=== PATIENT | male | born 1960 | race Caucasian/White ===

== ENCOUNTER → 2017-01-18 | Outpatient (CLI) | payer OTHER | END | disposition home or self-care (01) | LOC: PTH.S 08:29 | DX: Z01.812 Encounter for preprocedural laboratory examination (principal) ==

== ENCOUNTER 2017-01-31 05:35 | Day surgery (SDC) | payer OTHER ==
[~2017-01-31] VITALS: Ht 182.9 cm; Wt 113.5 kg
--- NOTE | ~2017-01-31 | OR ---
ADMIT: 01/31/2017 RM/LOC: [facility] MR#: [id number] ACC#: [id number] [address] [address] LUIS ALBERTO FIELDS [address] [place] [address] Operative/Delivery Room Report SEX: M AGE: 56 : 1960 SURGERY DATE: 01/31/2017 SURGEON: Itz Deshpande MD PREOPERATIVE DIAGNOSES: 1. Right shoulder impingement syndrome. 2. Symptomatic acromioclavicular arthritis. 3. Partial thickness rotator cuff tear. 4. Biceps labral partial tear. POSTOPERATIVE DIAGNOSES: 1. Right shoulder impingement syndrome. 2. Symptomatic acromioclavicular arthritis. 3. Minimal bursal rotator cuff fraying. 4. Biceps labral instability. PROCEDURES: 1. Right shoulder diagnostic arthroscopy. 2. Arthroscopic subacromial decompression. 3. Arthroscopic distal clavicle excision. 4. Arthroscopic biceps tenodesis. ASSISTANTS: RAY Booker and Adalid Solares PA-C. ANESTHESIA: General. COMPLICATIONS: None. DESCRIPTION OF PROCEDURE: The patient taken to operating room, received a general anesthetic. Placed in a semi-beach chair position. The right shoulder was prepped and draped in standard fashion. Posterior portal was made. The scope was positioned in the glenohumeral joint. The humeral head was normal, glenoid normal. There was some fraying of the anterior labrum and superior labrum. There was some fraying and instability of the biceps tendon. We went ahead and did a biceps tenotomy for future tenodesis. At that point, the articular rotator cuff was attached. We then put the scope in the subacromial space. The subacromial space was very tight. We did a subacromial bursectomy, cleaned off the undersurface of the acromion. Released the CA ligament. At that point, did an arthroscopic subacromial decompression from anterior to posterior, lateral to medial at the level of the AC joint. At that point, we did find the distal end of clavicle, removed ADMIT: 01/31/2017 RM/LOC: [facility] MR#: [id number] [address] [address] LUIS ALBERTO FIELDS [address] [address] Operative/Delivery Room Report SEX: M AGE: 56 : 1960 the distal 10 mm of the clavicle with no undue difficulty. We then identified the bicipital groove in the subacromial space, opened up the bicipital groove, grabbed biceps tendon with a tissue grasper. At that point, used a tissue ablator, to clean out the bicipital groove. We then used an 8-mm reamer, reamed 8 mm tunnel in the bicipital groove. We then used a Bio tenodesis screw. We did a Bio tenodesis with a good purchase. We then used a shaver to clean off the remaining biceps stump. At that point, again the bursal rotator cuff had some minimal bursal sided-fraying, but no full-thickness tears. We then withdrew all arthroscopic equipment, drained all excess fluid, closed the portals with nylon. Injected the field with Marcaine. Applied sterile dressings. He was taken to recovery room in stable condition. No complications. Itz Deshpande MD/ destin JOB #: [id number] CC: Itz Deshpande, Attending Physician Suzette Carter, Family Physician
--- NOTE | 2017-02-06 09:27 | HP ---
ADMIT: 01/31/2017 RM/LOC: [facility] MR#: [id number] [address] [address] LUIS ALBERTO FIELDS [address] [place] [id number] Pre-OP History and Physical SEX: M AGE: 56 : 1960 DATE OF SERVICE: CHIEF COMPLAINT: Right shoulder pain. HISTORY OF PRESENT ILLNESS: The patient is a 56-year-old male complaining of pain in his right shoulder. He has had long-standing right shoulder pain. He does have interstitial lung disease which is followed by the [facility]. He has had an injection in the shoulder, no penitentiary improvement. Now being admitted for right shoulder arthroscopy. PAST MEDICAL HISTORY: Include autoimmune lung disease. PAST SURGICAL HISTORY: Knee arthroscopy. MEDICATIONS: Include: 1. Metoprolol. 2. Azathioprine. ALLERGIES: NONE. SOCIAL HISTORY: Denies any tobacco or alcohol use. REVIEW OF SYSTEMS: Negative. PHYSICAL EXAMINATION: Healthy appearing-male with positive impingement test, positive crossover test. Pain with supraspinatus testing. He has pain with biceps labral testing. Arms neurovascularly intact. IMAGING: MRI shows a partial thickness rotator cuff tear and partial biceps tendon tear. IMPRESSION: 1. A right partial-thickness rotator cuff tear. 2. Symptomatic acromioclavicular arthritis. 3. Biceps labral tear. PLAN: At this point, we are going to proceed with right shoulder arthroscopy, subacromial decompression, distal clavicle excision, likely biceps tenodesis, possible rotator cuff repair. He is aware of the risks, benefits and option and agreed to proceed. He has been seen and cleared from a medical standpoint. Itz Deshpande MD/ dsetin JOB #: [id number] CC: Itz Deshpande, Attending Physician ADMIT: 01/31/2017 RM/LOC: [facility] MR#: [id number] [address] [address] LUIS ALBERTO FIELDS [address] [place] [address] Pre-OP History and Physical SEX: M AGE: 56 : 1960 Suzette Carter [facility] Physician
== END 2017-01-31 12:10 | disposition home or self-care (01) ==
LOC: SSS
PROC: 0RNJ4ZZ Release Right Shoulder Joint, Percutaneous Endoscopic Approach (ICD-10-PCS; principal; 2017-01-31)
PROC: 0PB94ZZ Excision of Right Clavicle, Percutaneous Endoscopic Approach (ICD-10-PCS; principal; 2017-01-31)
PROC: 0LS14ZZ Reposition Right Shoulder Tendon, Percutaneous Endoscopic Approach (ICD-10-PCS; principal; 2017-01-31)
DX: M75.41 Impingement syndrome of right shoulder (principal); M75.101 Unspecified rotator cuff tear or rupture of right shoulder, not specified as traumatic; S46.211A Strain of muscle, fascia and tendon of other parts of biceps, right arm, initial encounter; M13.811 Other specified arthritis, right shoulder; G47.30 Sleep apnea, unspecified; I25.2 Old myocardial infarction; K21.9 Gastro-esophageal reflux disease without esophagitis; E66.9 Obesity, unspecified; Z90.49 Acquired absence of other specified parts of digestive tract; Z79.899 Other long term (current) drug therapy; X58.XXXA Exposure to other specified factors, initial encounter